=== PATIENT | male | born 1955 | race Caucasian/White ===

== ENCOUNTER → 2020-05-15 | Outpatient (CLI) | payer BC | END | disposition home or self-care (01) | LOC: CFH 10:09 | PROVIDERS: ATTEND Internal Medicine | DX: Z12.2 Encounter for screening for malignant neoplasm of respiratory organs (principal); I25.10 Atherosclerotic heart disease of native coronary artery without angina pectoris; Z87.891 Personal history of nicotine dependence | CPT/HCPCS: G0297 ==